=== PATIENT | male | born 1930 | race Caucasian/White ===

== ENCOUNTER 2022-03-10 22:13 | Inpatient (IN) | payer MEDICARE ==
[2022-03-10] MEDS ORDERED: Lactated Ringers 500 ML IV ONE (22:34)
[2022-03-10] MEDS ORDERED: Lactated Ringers 1,000 ML IV SCH (22:45)
[2022-03-11] MEDS ORDERED: cefTRIAXone 1 GM in Sodium Chloride 0.9% 100 ML IV ONE (06:59)
[2022-03-11] MEDS ORDERED: Azithromycin 500 MG in Sodium Chloride 0.9% 250 ML IV ONE (07:01)
[2022-03-11] MEDS ORDERED: Sodium Chloride 0.9% 1,000 ML IV SCH (07:15)
[2022-03-11] MEDS: Sodium Chloride 0.9% 1,000 ML IV SCH (17:57)
[2022-03-12] MEDS: Sodium Chloride 0.9% 1,000 ML IV SCH ×2 (03:58→14:17)
[2022-03-12 07:04] LABS: ESTIMATED GFR > 60 mL/min (>60)
[2022-03-12] MEDS: Potassium Chloride 20 MEQ Tab.ER PO SCH ×3 (08:57→20:12)
[2022-03-12] MEDS: Enoxaparin 40 MG/0.4 ML Syringe SUBCUT SCH (08:57)
[2022-03-12] MEDS ORDERED: Sodium Chloride 0.9% 1,000 ML IV SCH (14:30)
[2022-03-13 07:04] LABS: ESTIMATED GFR > 60 mL/min (>60)
[2022-03-13] MEDS: Enoxaparin 40 MG/0.4 ML Syringe SUBCUT SCH (08:06)
[2022-03-13] MEDS ORDERED: Docusate Sodium 100 MG Cap PO PRN (13:58)
[2022-03-13] MEDS ORDERED: Polyethylene Glycol 3350 Powder 17 GM Packet PO PRN (13:58)
[2022-03-13] MEDS ORDERED: Albuterol/Ipratropium 3.0-0.5 MG/3 ML Neb Soln NEB PRN (13:58)
[2022-03-13] MEDS ORDERED: Ondansetron 4 MG/2 ML SDV IV PRN (13:58)
[2022-03-13] MEDS ORDERED: Acetaminophen 325 MG Tab PO PRN (13:58)
[2022-03-13] MEDS ORDERED: Magnesium Sulfate/Water 2 GM in Premix Bag 1 BAG IV ONE ×2 (14:15→16:00)
[2022-03-13] MEDS: cefTRIAXone 2 GM in Sodium Chloride 0.9% 100 ML IV SCH (14:24)
[2022-03-13] MEDS: Azithromycin 500 MG in Sodium Chloride 0.9% 250 ML IV SCH (15:08)
[2022-03-14 07:02] LABS: ESTIMATED GFR > 60 mL/min (>60)
[2022-03-14 07:55] LABS: VITAMIN D,25-HYDROXY 34.3 ng/ml (30.0-100.0)
[2022-03-14] MEDS: Enoxaparin 40 MG/0.4 ML Syringe SUBCUT SCH (08:24)
[2022-03-14] MEDS ORDERED: Magnesium Sulfate/Water 2 GM in Premix Bag 1 BAG IV ONE (08:30)
[2022-03-14] MEDS ORDERED: Potassium Phosphates 30 MMOLE in Sodium Chloride 0.9% 500 ML IV ONE (11:00)
[2022-03-14] MEDS: cefTRIAXone 2 GM in Sodium Chloride 0.9% 100 ML IV SCH (13:16)
[2022-03-14] MEDS: Azithromycin 500 MG in Sodium Chloride 0.9% 250 ML IV SCH (14:00)
[2022-03-14] MEDS: Biotin/Folic Acid/Vitamin C/Vitamin B Complex Tab PO SCH (15:35)
[2022-03-15 06:50] LABS: ESTIMATED GFR > 60 mL/min (>60)
[2022-03-15] MEDS: Enoxaparin 40 MG/0.4 ML Syringe SUBCUT SCH (08:17)
[2022-03-15] MEDS: Biotin/Folic Acid/Vitamin C/Vitamin B Complex Tab PO SCH (08:17)
[2022-03-15] MEDS: Magnesium Oxide 400 MG Tab PO SCH ×2 (10:01→20:47)
[2022-03-15] MEDS: Potassium Chloride 20 MEQ Tab.ER PO SCH ×2 (10:01→20:46)
[2022-03-15] MEDS: cefTRIAXone 2 GM in Sodium Chloride 0.9% 100 ML IV SCH (13:27)
[2022-03-15] MEDS: Azithromycin 500 MG in Sodium Chloride 0.9% 250 ML IV SCH (14:01)
[2022-03-16 06:40] LABS: ESTIMATED GFR > 60 mL/min (>60)
[2022-03-16] MEDS: Enoxaparin 40 MG/0.4 ML Syringe SUBCUT SCH (08:56)
[2022-03-16] MEDS: Magnesium Oxide 400 MG Tab PO SCH ×2 (08:56→20:16)
[2022-03-16] MEDS: Biotin/Folic Acid/Vitamin C/Vitamin B Complex Tab PO SCH (08:56)
[2022-03-16] MEDS: Potassium Chloride 20 MEQ Tab.ER PO SCH (08:56)
[2022-03-16] MEDS: Meropenem Premix 500 MG in Premix Bag 1 BAG IV SCH ×2 (10:31→16:18)
[2022-03-16] MEDS ORDERED: Vancomycin 1 GM, Vancomycin 500 MG in Sodium Chloride 0.9% 500 ML IV ONE (16:00)
[2022-03-16] MEDS ORDERED: Vancomycin 1.75 GM in Sodium Chloride 0.9% 500 ML IV ONE (16:00)
[2022-03-17] MEDS: Meropenem Premix 500 MG in Premix Bag 1 BAG IV SCH ×2 (00:02→09:28)
[2022-03-17] MEDS ORDERED: Vancomycin 1 GM, Vancomycin 250 MG in Sodium Chloride 0.9% 250 ML IV SCH (04:00)
[2022-03-17 06:20] LABS: ESTIMATED GFR > 60 mL/min (>60)
[2022-03-17] MEDS: Biotin/Folic Acid/Vitamin C/Vitamin B Complex Tab PO SCH (09:29)
[2022-03-17] MEDS: Enoxaparin 40 MG/0.4 ML Syringe SUBCUT SCH (09:29)
[2022-03-17] MEDS: Magnesium Oxide 400 MG Tab PO SCH (09:29)
== END 2022-03-17 15:07 | DRG 194 ==
LOC: JD.ED 22:13 → JD.MS 03-11 07:25
PROVIDERS: ADMIT Family Medicine; ATTEND Internal Medicine
DX: J18.9 Pneumonia, unspecified organism (principal); J98.11 Atelectasis; J90 Pleural effusion, not elsewhere classified; R82.1 Myoglobinuria; M62.82 Rhabdomyolysis; Z88.8 Allergy status to other drugs, medicaments and biological substances; W19.XXXA Unspecified fall, initial encounter; R94.31 Abnormal electrocardiogram [ECG] [EKG]; Z20.822 Contact with and (suspected) exposure to COVID-19; F03.90 Unspecified dementia, unspecified severity, without behavioral disturbance, psychotic disturbance, mood disturbance, and anxiety; Z97.4 Presence of external hearing-aid; G62.9 Polyneuropathy, unspecified; Z86.16 Personal history of COVID-19; Z90.89 Acquired absence of other organs; Z98.52 Vasectomy status; Z79.899 Other long term (current) drug therapy; M1A.9XX0 Chronic gout, unspecified, without tophus (tophi); E83.42 Hypomagnesemia; E83.39 Other disorders of phosphorus metabolism; E87.6 Hypokalemia; E88.09 Other disorders of plasma-protein metabolism, not elsewhere classified
CPT/HCPCS: 36415 ×2; 70450; 71045; 80053; 80306; 80307; 81001; 82550; 83605 ×2; 83874; 84484; 85025; 85610; 85730; 87040 ×2; 87086; 93005; 99285; J7120; 71250; 71250-26; 80048; 82306; 83735; 83880; 83930; 83935; 84100; 84145; 84300; 84443; 85027; 86140; 87641; 92523-GN; 93010; 94760; 97110-GP; 97116-GP; 97162-GP; 99233; 99284; A9270-GY; J0456; J0696; J1650; J2185; J3370; J3475; J3490; J7030; J7040; J7050; U0002